=== PATIENT | female | born 1940 | race Two or more races ===

== ENCOUNTER 2025-06-17 16:51 | Emergency (ER) | payer OTHER ==
[2025-06-17 16:58] VITALS: BP 131/68; PULSE 85; RESP 18; TEMP 97.9; BMI 26.2
[2025-06-17] MEDS ORDERED: ACETAMINOPHEN 500 MG TABLET (FP) ONE (17:45)
[2025-06-17] MEDS: ACETAMINOPHEN 500 MG TABLET (FP) PO ONE (17:50)
== END 2025-06-17 20:13 | disposition home or self-care (01) ==
LOC: JER 16:51
DX: S20.212A Contusion of left front wall of thorax, initial encounter (principal); M54.50 Low back pain, unspecified; M54.6 Pain in thoracic spine; W18.2XXA Fall in (into) shower or empty bathtub, initial encounter; Y92.002 Bathroom of unspecified non-institutional (private) residence as the place of occurrence of the external cause
CPT/HCPCS: 71250-TC; 72128-TC; 72131-TC; 99284-25